=== PATIENT | male | born 1960 | race Caucasian/White ===

== ENCOUNTER → 2020-11-24 13:09 | Outpatient (CLI) | payer OTHER, SELFPAY ==
--- NOTE | ~2020-11-24 | CT_ITS ---
EXAMINATION: CT abdomen pelvis wo/w con DATE: 11/24/2020 13:54 INDICATION: Kidney stones. Frequent urination. Periumbilical bulge and pain. TECHNIQUE: Computed tomography (CT) of the abdomen and pelvis was performed without and with intraven ous contrast using a total of 130 mL Omnipaque-350 intravenous contrast with a double-bolus technique for simultaneous opacification of the renal parenchyma and renal collecting system. Automated exposu re control and iterative reconstruction technique were employed. The dose-length product was 2362.17 mGy-cm. COMPARISON: CT abdomen and pelvis 03/14/2012 FINDINGS: The visualized portions of the lung bases are clear without pneumonia or pleural effusion. The heart size is normal. No pericardial effusion. There is diffuse hepatic steatosis. The gallbladder, spleen, pancreas, and adrenal glands are normal. There is focal cortical thinning of right kidney. There is a 12 mm cyst in right kidney. There is a 4 mm stone at left ureterovesicular junction. There is a 9 m m cyst in left kidney. No hydronephrosis. The ureters are well opacified. The bladder is well opacifi ed and is normal. The prostate is mildly enlarged. There is diverticulosis of the colon without evide nce of diverticulitis. There are no dilated loops of bowel. The appendix is normal. There are no path ologically enlarged lymph nodes. There is no free intraperitoneal fluid. There is prominent fat in th e inguinal canals that may be hernias. There is mild thoracolumbar spondylosis. IMPRESSION: 1. 4 mm stone at left ureterovesicular junction. No hydronephrosis. Reviewed, dictated and finalized at location [facility]
[2020-11-24 13:30] LABS: Estimated Glomerular Filt Rate > 60
== END ==
PROVIDERS: PCP Family Medicine; Visit Provider Nurse Practitioner Family
DX: N20.1 Calculus of ureter (principal)
CPT/HCPCS: 74178; Q9967

== ENCOUNTER 2022-04-19 00:47 | Day surgery (SDC) | payer OTHER, SELFPAY ==
[2022-04-12 10:47] VITALS: BMI 40.4
--- NOTE | 2022-04-19 06:47 | P.PNAN_ITS ---
Anes - Initial Pre Proc Eval Procedure: Operation Date: 04/19/22 10:00 Proposed Procedures p Screening Colonoscopy - Derrek Bryant MD Date/Time: 04/19/22 06:47 Surgeon: Derrek Bryant MD Pre Op Diagnosis: neoplasm screening Patient Data Age: 61 Gender: M Height: 1.7 m Weight: 117 kg Allergies Allergy/AdvReac Type Severity Reaction Status Date / Time testosterone [From Androderm] Allergy Intermediate Rash Verified 04/19/22 08:46 Home Medications Medication Instructions Recorded Confirmed Type testosterone (Natesto) 1 pump intranasal TID #15 grams 03/14/22 04/19/22 Rx allopurinol 300 mg tablet See Rx Instructions .Route 03/26/22 04/19/22 Rx .COMPLEX #90 tabs rosuvastatin 20 mg tablet See Rx Instructions .Route 03/30/22 04/19/22 Rx .COMPLEX #90 tabs sodium sul 1.479 gram-potas ch See Rx Instructions PO PER PKG DIR 04/12/22 04/19/22 Rx 0.188 gram-magnes sul 0.225 gram #24 tabs tablet (Sutab) valacyclovir 1 gram tablet 2,000 mg PO Q12H PRN Cold Sores 04/12/22 04/19/22 History (Valtrex) Patient hx anesthesia problems: none Family hx anesthesia problems: none Results Review: All pre-operative results and documents have been reviewed as part of the pre- operative evaluation. [facility] Past Medical History Medical History (Updated 04/19/22 @ 06:49 by Ricardo Reyes, ) BMI 38.0-38.9,adult BMI greater than 40 Gout, unspecified Hyperlipidemia Morbid (severe) obesity due to excess calories Family History Family History Father Hypertension Cerebrovascular accident Family history of diabetes mellitus in first degree relative Family history of coronary artery disease Acute myocardial infarction Mother Skin cancer Diabetes mellitus Sibling Diabetes mellitus Kidney disease Other Family history of cardiac disorder Social History Social History Smoking status: Never smoker Second hand tobacco smoke exposure: Yes Alcohol intake: current Drinks per week: 10 Substance use: never Substance use type: does not use Living arrangements: with family 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 Informed Consent: The patient's anesthetic plan and its attendant risks and benefits were discussed with the patient/family/POA. Questions were solicited and answers provided to the satisfaction of the patient/family/POA.
[2022-04-19 08:48] VITALS: BP 169/98; PULSE 60; RESP 18; TEMP 36.3; O2SAT 100
[2022-04-19] MEDS: LACTATED RINGERS 1,000 ML 150 ML IV CONT (08:59)
--- NOTE | 2022-04-19 09:17 | PM.HPGS ---
History of Present Illness History of Present Illness Consent: Risks, benefits, and alternatives have been discussed and questions answered. Patient agrees to proceed with procedure. Chief complaint: neoplasm screening Narrative: Roni Strong is a 61 year old male Referred for colon cancer screening. Review of Systems Review of Systems: All systems reviewed & are unremarkable except as noted in HPI and below PMFSH Past Medical History Medical History BMI 38.0-38.9,adult BMI greater than 40 Gout, unspecified Hyperlipidemia Morbid (severe) obesity due to excess calories Family History Family History Father Hypertension Cerebrovascular accident Family history of diabetes mellitus in first degree relative Family history of coronary artery disease Acute myocardial infarction Mother Skin cancer Diabetes mellitus Sibling Diabetes mellitus Kidney disease Other Family history of cardiac disorder Social History Social History Smoking status: Never smoker Second hand tobacco smoke exposure: Yes Alcohol intake: current Drinks per week: 10 Substance use: never Substance use type: does not use Living arrangements: with family 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 Gender identity (if verbalized by the patient): Male Meds Home Medications and Allergies Home Medications Medication Instructions Recorded Confirmed Type testosterone (Natesto) 1 pump intranasal TID #15 grams 03/14/22 04/19/22 Rx allopurinol 300 mg tablet See Rx Instructions .Route 03/26/22 04/19/22 Rx .COMPLEX #90 tabs rosuvastatin 20 mg tablet See Rx Instructions .Route 03/30/22 04/19/22 Rx .COMPLEX #90 tabs sodium sul 1.479 gram-potas ch See Rx Instructions PO PER PKG DIR 04/12/22 04/19/22 Rx 0.188 gram-magnes sul 0.225 gram #24 tabs tablet (Sutab) valacyclovir 1 gram tablet 2,000 mg PO Q12H PRN Cold Sores 04/12/22 04/19/22 History (Valtrex) Allergies Allergy/AdvReac Type Severity Reaction Status Date / Time testosterone [From Androderm] Allergy Intermediate Rash Verified 04/19/22 08:46 Vital Signs Vital Signs - 24 hr 04/19/22 08:48 Temperature 36.3 C L Pulse Rate 60 Respiratory Rate 18 Blood Pressure 169/98 H Pulse Oximetry 100 Oxygen Delivery Room Air Exam Resp: Auscultation: clear to auscultation bilaterally Cardio: Rate: regular rate Rhythm: regular rhythm GI: GI Palp: Yes Soft to palpation and No Tenderness to palpation present (GI) Assessment and Plan Assessment and plan (1) Screening for malignant neoplasm of colon: Code(s): Z12.11 - Encounter for screening for malignant neoplasm of colon Status: Acute Assessment and Plan: Colonoscopy with possible biopsy or polypectomy or cautery or injection of substances.
[2022-04-19] MEDS: SIMETHICONE ORAL SUSPENSION 20 MG/0.3 ML 30 ML BOTTLE 0.6 ML IRRIGATION (10:06)
[2022-04-19 10:17] VITALS: BP 128/74; PULSE 54; RESP 24; O2SAT 97
[2022-04-19 10:27] VITALS: BP 132/82; PULSE 49; RESP 14; O2SAT 97
[2022-04-19 10:37] VITALS: BP 139/89; PULSE 55; RESP 14; O2SAT 100
== END 2022-04-19 10:47 | disposition home or self-care (01) ==
PROVIDERS: PCP Family Medicine; Visit Provider Internal Medicine Gastroenterology
PROC: 0DJD8ZZ Inspection of Lower Intestinal Tract, Via Natural or Artificial Opening Endoscopic (ICD-10-PCS; CPT 45378; principal; 2022-04-19 10:00)
DX: Z12.11 Encounter for screening for malignant neoplasm of colon (principal); K57.30 Diverticulosis of large intestine without perforation or abscess without bleeding; M10.9 Gout, unspecified; E78.5 Hyperlipidemia, unspecified; E66.01 Morbid (severe) obesity due to excess calories; Z68.41 Body mass index [BMI] 40.0-44.9, adult
CPT/HCPCS: 45378; J2704; J7120